=== PATIENT | male | born 1975 | race Caucasian/White ===

== ENCOUNTER 2017-10-04 18:41 | Emergency (ER) | payer MEDICAID ==
[~2017-10-04] VITALS: Ht 180.3 cm; Wt 59.0 kg
[2017-10-04 18:42] VITALS: BP_SYST 128
--- NOTE | 2017-10-04 18:42 | NUR ---
Patient to ER bed 05 to gown for evaluation. Side rails up.
--- NOTE | 2017-10-04 19:00 | NUR ---
Pt AAOx3 presents to the ED c/o weakness s/p fall this evening. Pt states he fell 3 days ago trying to get in a taxi after leaving a bar. Pt reports falling out of bed this morning and "sometime this evening". Pt reports consuming 2 beers this morning. Skin pink, warm, dry. Breathing even and unlabored. No other injuries/complaints per pt/noted. Will continue to monitor.
--- NOTE | 2017-10-04 19:07 | NUR ---
# 20 gauge angiocath placed to R AC. Use of asceptic technique. Opsite placed over site. Blood return noted. Blood for lab drawn from site. Flushed with 10 cc of normal saline. No evidence of infiltration noted. Patient tolerated well.
--- NOTE | 2017-10-04 19:12 | NUR ---
Care endorsed to Tomer KEYES.
--- NOTE | 2017-10-04 19:19 | NUR ---
Radiology at bedside
--- NOTE | 2017-10-04 19:56 | NUR ---
ED MD Burdick at bedside assessing patient.
[2017-10-04 20:14] LABS: BILIRUBIN,URINE NEGATIVE (NEGATIVE); BLOOD, URINE NEGATIVE (NEGATIVE); CLARITY/URINE CLEAR (CLEAR); COLOR,URINE ORANGE (YELLOW); GLUCOSE,URINE 2+ (NEGATIVE); KETONES,URINE 1+ (NEGATIVE); LEUKOCYTE ESTERASE ,URINE NEGATIVE (NEGATIVE); NITRITE, URINE NEGATIVE (NEGATIVE); PROTEIN URINE NEGATIVE (NEGATIVE)
[2017-10-04 20:41] VITALS: BP_SYST 125
--- NOTE | 2017-10-04 20:41 | NUR ---
Patient given written and verbal discharge instructions and verbalizes understanding. ER MD discussed with patient the results and treatment provided. Patient in stable condition. ID arm band removed. IV catheter removed intact and dressing applied, no active bleeding. No Rx given. Patient educated on pain management and to follow up with PMD. Pain Scale 0/10.Opportunity for questions provided and answered.
--- NOTE | 2017-10-04 20:41 | NUR ---
Rx of Motrin 600 mg tab given to pt
== END 2017-10-04 20:41 | disposition home or self-care (01) ==
LOC: SED 18:41
DX: S00.03XA Contusion of scalp, initial encounter (principal); S00.12XA Contusion of left eyelid and periocular area, initial encounter; S00.432A Contusion of left ear, initial encounter; I10 Essential (primary) hypertension; V89.9XXA Person injured in unspecified vehicle accident, initial encounter; Y93.89 Activity, other specified; Y92.89 Other specified places as the place of occurrence of the external cause; Y99.8 Other external cause status
CPT/HCPCS: 70450-TC; 71045; 81003; 93005; 99285